=== PATIENT | male | born 1990 | race Two or more races ===

== ENCOUNTER 2019-11-12 18:43 | Emergency (ER) | payer MEDICAID, OTHER ==
[~2019-11-12] VITALS: Ht 182.9 cm; Wt 105.0 kg
--- NOTE | 2019-11-12 19:00 | NUR ---
29 YEAR OLD MALE TO ED, [facility], FOR ALTERED MENTAL STATUS. HE STATES HE HAS BEEN UNDER A GREAT DEAL OF STRESS LATELY BECAUSE OF SCHOOL AND OTHER STRESSORS. HE STATES HE HAS BEEN HAVING VISUAL AND AUDITORY HALLUCINATIONS. HE DENIES HOMICIDAL OR SUICIDAL IDEATIONS. HE IS CALM AND COOPERATIVE AND NOT RESPONDING TO INTERNAL STIMULI. GCS 15, AAO X 4. HE DENIES AND PMHX OR PSYCHIATRIC HISTORY OR HOSPITALIZATIONS.
[2019-11-12 19:01] VITALS: BP 123/76
[2019-11-12 19:55] LABS: BASOPHILS # (AUTO) 0.02 x10^3/uL (0-0.1); BASOPHILS % (AUTO) 0 % (0-1); EOSINOPHILS # (AUTO) 0.02 x10^3/uL (0-0.4); EOSINOPHILS % (AUTO) 0 % (1-7); LYMPHOCYTES # (AUTO) 1.65 x10^3/uL (1-3.4); LYMPHOCYTES % (AUTO) 29 % (22-44); MD NO; MEAN CORPUSCULAR HEMOGLOBIN 30.3 pg (27.5-34.5); MEAN CORPUSCULAR HGB CONC 33.1 g/dL (33.2-36.2); MEAN CORPUSCULAR VOLUME 91.5 fL (81-97); MEAN PLATELET VOLUME 7.4 fL (7.4-10.4); MONOCYTES # (AUTO) 0.49 x10^3/uL (0.2-0.8); MONOCYTES % (AUTO) 9 % (2-9); NEUTROPHILS # (AUTO) 3.45 x10^3/uL (1.8-6.8); NEUTROPHILS % (AUTO) 61 % (42-75); PLATELET COUNT 279 x10^3/uL (130-400); RED BLOOD COUNT 4.93 x10^6/uL (4.38-5.82); RED CELL DISTRIBUTION WIDTH 12.7 % (9.4-14.8)
--- NOTE | 2019-11-12 20:04 | NUR ---
PATIENT TO CT SCAN.
[2019-11-12 20:07] LABS: ALANINE AMINOTRANSFERASE 27 U/L (12-78); ALBUMIN 4.4 g/dL (3.4-5.0); ANION GAP 9 mmol/L (5-15); CALCIUM 8.7 mg/dL (8.5-10.1); CHLORIDE 107 mmol/L (98-107); CREATININE 1.07 mg/dL (0.7-1.3)
--- NOTE | 2019-11-12 20:12 | NUR ---
PATIENT GIVEN A URINAL FOR REQUESTED SPECIMEN. HE VERBALIZED UNDERSTANDING.
[2019-11-12 20:18] LABS: ALKALINE PHOSPHATASE 69 U/L (45-117); BILIRUBIN,TOTAL 2.1 mg/dL (0.2-1.0); TOTAL PROTEIN 8.3 g/dL (6.4-8.2)
[2019-11-12 20:23] LABS: SALICYLATE LEVEL < 1.7 mg/dL (2.8-20.0)
--- NOTE | 2019-11-12 21:00 | NUR ---
patient in no apparent distress. He is sitting in bed aao x 4, gcs 15.
[2019-11-12 21:06] LABS: MICROSCOPIC AUTO
[2019-11-12 21:15] LABS: AMPHETAMINE SCREEN, URINE Positive (Negative); BARBITURATE SCREEN, URINE Negative (Negative); BENZODIAZEPINE SCREEN, URINE Negative (Negative); CANNABINOID SCREEN, URINE Negative (Negative); COCAINE SCREEN, URINE Positive (Negative); METHADONE SCREEN, URINE Negative (Negative); OPIATE SCREEN, URINE Negative (Negative)
--- NOTE | 2019-11-12 22:06 | NUR ---
patient was given discharge paperwork. he was upset and disagreed with disposition. He was told that we cannot change the disposition and that it is protected health information. He was given follow-up information. He ambulated off unit without incident.
== END 2019-11-12 22:09 | disposition home or self-care (01) ==
LOC: ED 21:15
DX: F14.10 Cocaine abuse, uncomplicated (principal); F15.151 Other stimulant abuse with stimulant-induced psychotic disorder with hallucinations; R44.1 Visual hallucinations
CPT/HCPCS: 36415; 70450; 80053; 80307; 81001; 84443; 85025; 99284